=== PATIENT | female | born 1960 | race Two or more races ===

== ENCOUNTER 2018-11-16 04:54 | Day surgery (SDC) | payer OTHER ==
[2018-11-12 10:41] VITALS: BMI 31.7
[2018-11-16] MEDS ORDERED: ONDANSETRON 4 MG/2 ML VIAL IVPUSH PRN (11:14)
[2018-11-16] MEDS ORDERED: LACTATED RINGERS SOLUTION 1,000 ML IV SCH ×2 (11:15→12:45)
[2018-11-16] MEDS ORDERED: MIDAZOLAM HCL 2 MG/2 ML SINGLE DOSE VIAL ONE (11:46)
[2018-11-16] MEDS ORDERED: PROPOFOL 20 ML ONE ×2 (11:48)
[2018-11-16] MEDS ORDERED: SUCCINYLCHOLINE CHLORIDE 200 MG/10 ML SYRINGE ONE (11:49)
[2018-11-16] MEDS ORDERED: KETOROLAC TROMETHAMINE 30 MG/1 ML VIAL ONE (12:06)
[2018-11-16] MEDS ORDERED: DEXAMETHASONE SOD PHOSPHATE 4 MG/1 ML VIAL ONE (12:06)
--- NOTE | 2018-11-16 12:21 | HP ---
Past Medical History - Primary Care Physician PCP:: Cynthia Norton - Admission Chief Complaint: 58 yrs , menopause 2012, for D&C hysteroscopy due to Post menopausal bleeding for 1 week abou2-4 wks ago History of Present Illness: pt was referred to [address] [place] [address] for EM Bx from [facility] 10/23/18 em bx report proliferatve em, brek down , no malignancy c/o PMB for 1 wk mainly spotting h/o abn pap ASCUS 08/24/16 , hpv neg. Repeat pap 10/23/18 ascus, hpv neg colposcopy done 11/06/18 neg , satisfactory . ecc neg for dysplasia sonogram reported ut 5 cm, em 4mm, post wall echogenic focus 7.5x4mm focus inseprable from em , near fundus echogenic focus inseparable from ut , possible polyp or submucus fibroid . 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 Cardiovascular: Yes: HTN, Hyperlipdemia Pulmonary: No: Asthma Gastrointestinal: Yes: Gastritis, Other (h/o colon polyp diagnosed on colonoscopy) Hepatobiliary: No: Cirrhosis, Cholelithiasis, Cholecystitis, Choledocholithiasis , Hepatitis A, Hepatitis B, Hepatitis C, Other Renal/: No: Renal Failure, Renal Inusuff, BPH, Cancer, Hematuria, Hemodialysis , Neurogenic Bladder, Renal Calculi, UTI, Other Reproductive: Yes: Postmenopausal (pmb), Other (h/o ascus , HPV neg 2016 & 2018 colposcopy neg , ecc neg for dysplasia Mammogram 10/06/2018 --birad's 2) ...: 2 ...Para: 2 (2 , LD 1980 ) Infectious Disease: No: AIDS, C-Diff, Herpes Zoster, HIV, MRSA, STD's, Tuberculosis, VREF, Other Psych: No: Addictions, Anxiety, Bipolar, Depression, Panic, Psychosis, Schizophrenia, Other - Past Surgical History Past Surgical History: Yes: Colonoscopy (2015) Hx Myomectomy: No Hx Transabdominal Cerclage: No - Smoking History Smoking history: Never smoked Have you smoked in the past 12 months: No - Alcohol/Substance Use Hx Alcohol Use: No History of Substance Use: reports: None Home Medications - Allergies Allergies/Adverse Reactions: Allergies Allergy/AdvReac Type Severity Reaction Status Date / Time No Known Allergies Allergy Verified 11/16/18 10:04 - Home Medications Home Medications: Ambulatory Orders Acetaminophen [Tylenol Arthritis] 650 mg PO PRN 11/12/18 Hydralazine HCl 25 mg PO DAILY 11/12/18 Ibuprofen 800 mg PO PRN 11/12/18 Pantoprazole Sodium [Protonix -] 40 mg PO DAILY 11/12/18 Simvastatin 20 mg PO DAILY 11/12/18 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 No: Bleeding Cervix: Yes: Normal. No: Cerv Motion Tenderness Uterus: Yes: Normal, Freely Moveable, Firm, Retroverted Adnexa: Normal: Bilateral, Not Palpable: Bilateral Breast(s): Yes: WNL Musculoskeletal: Yes: WNL Extremities: Yes: WNL. No: Calf Tenderness Edema: No Integumentary: Yes: WNL Neurological: Yes: WNL ...Motor Strength: WNL Psychiatric: Yes: WNL, Alert, Oriented Problem List - Problem (1) Postmenopausal bleeding Code(s): N95.0 - POSTMENOPAUSAL BLEEDING (2) Endometrium, polyp Code(s): N84.0 - POLYP OF CORPUS UTERI Assessment/Plan 58 yrs , menopause since 2012, h/o PMB , suspecvted polyp posterior on sonogram plan Hysteroscopy, Pplypectomy, D&C
--- NOTE | 2018-11-16 12:44 | OP ---
Operative Note - Note: Operative Date: 11/16/18 Pre-Operative Diagnosis: PMB, & em p0lyp Operation: hysteroscopy, fractional D&C Findings: ut 5 cm , both tubal opening ostia note thin em liniing no plypm or submucous fibroid noted Post-Operative Diagnosis: Other (No polyp noted) Surgeon: Cynthia Norton Anesthesiologist/FAMILY REUNIFICATION SPECIALIST: Trudy Tavares MD Anesthesia: General Specimens Removed: ecc. emc Estimated Blood Loss (mls): 1 (scanty) Operative Report Dictated: Yes
[2018-11-16] MEDS ORDERED: IBUPROFEN 400 MG TABLET (FP) PO PRN (12:47)
--- NOTE | 2018-11-16 13:23 | OP ---
DATE OF OPERATION: 11/16/2018 PREOPERATIVE DIAGNOSIS: Postmenopausal bleeding, endometrial polyp. POSTOPERATIVE DIAGNOSIS: Postmenopausal bleeding. No endometrial polyp noted. SURGEON: Cynthia Norton MD ANESTHESIOLOGIST: Trudy Tavares MD SURGERY: Hysteroscopy, fractional dilation and curettage. FINDINGS: This is a 58-year-old 2, para 2-0-0-2 has a history of abnormal Pap as discussed in 2016 and October 2018. Colposcopy satisfactory, negative. ECC was negative for dysplasia. Endometrial biopsy in the clinic was proliferative endometrium, negative for the malignancy. US shows 7.5-mm echogenic focus posteriorly and also at the fundus questionable polyp or submucous fibroid. PROCEDURE: Patient is taken to operating room table. General anesthesia was given. Perineum and vulva were cleaned with Betadine. Vagina was cleaned with Betadine, and it was draped. The pelvic examination was done. There was incidental cystocele and rectocele was noted and cervix was 1st degree descent . Uterus was retroverted, normal size. Adnexa was not palpable. Weighted speculum was put. Anterior lip of the cervix and was held with a single-tooth tenaculum, and uterine cavity was sounded. The uterocervical length was 5 cm. Diagnostic hysteroscope was introduced. The endocervical canal was normal. Uterine cavity appeared to be normal. Thinned endometrium. Both ostia were noted. Fundus, anterior wall, and posterior wall inspected carefully, and no polyp or any submucous fibroid noted. The hysteroscope removed, and ECC was done. Cervix was dilated, and currettage was done. Cervix was dilated up to No. 8 dilator. Very minimal, scanty tissue was obtained and procedure completed. Bleeding minimal. Patient tolerated the procedure well and was transferred to recovery in stable condition. Santosh [id number] MTDDacry
[2018-11-16 13:48] VITALS: TEMP 97.5
[2018-11-16 15:27] VITALS: BP 116/68; PULSE 70
--- NOTE | 2018-11-19 15:12 | PATH ---
Surgical Pathology Report Patient Name: STEFANIE ANG [facility]. Rec. #: [id number] /Age/Gender: 1960 (Age: 58) / F Account: [id number] Location: AMBULATORY SURG Taken: 11/16/2018 Received: 11/16/2018 Reported: 11/19/2018 Physicians: Cynthia Norton M.D. Specimen(s) Received A: ENDOCERVICAL CURETTINGS B: ENDOMETRIAL CURETTINGS Clinical History Postmenopausal bleeding x3 weeks ago for 1 week Ultrasound-polyp past EM BX, proliferative endometrium ECC-negative for dysplasia colposcopy-negative Final Diagnosis A. ENDOCERVIX, CURETTAGE: BENIGN SQUAMOUS AND ENDOCERVICAL GLANDULAR EPITHELIUM. B. ENDOMETRIUM, CURETTAGE: DETACHED FRAGMENTS OF ATROPHIC ENDOMETRIUM, BENIGN SQUAMOUS AND SCANT ENDOCERVICAL GLANDULAR EPITHELIUM. Electronically Signed Agueda Henry M.D. Gross Description A. Received in formalin labeled "endocervical curettings" are scant fragments of pink-rodriges soft tissue having an aggregate of 0.3 x 0.2 x 0.1 cm. Specimen is filtered and entirely submitted in one cassette. B. Received in formalin labeled "endometrial curettings" are multiple irregular fragments of pink-rodriges and hemorrhagic, mucoid soft tissue having an aggregate of 0.4 x 0.3 x 0.1 cm. Entire specimen is submitted in one cassette. MLSZ/11/16/2018 sanml/11/16/2018
== END 2018-11-16 14:50 | disposition home or self-care (01) ==
LOC: JASUSAT 04:54 → JASU-SURG 04:54 → JASUSAT 14:50
PROVIDERS: ATTEND Obstetrics & Gynecology
PROC: 0UDB7ZX Extraction of Endometrium, Via Natural or Artificial Opening, Diagnostic (ICD-10-PCS; principal; 2018-11-16 11:30)
PROC: 0UJD8ZZ Inspection of Uterus and Cervix, Via Natural or Artificial Opening Endoscopic (ICD-10-PCS; 2018-11-16 11:30)
DX: N95.0 Postmenopausal bleeding (principal)
CPT/HCPCS: 86850; 86900; 86901; 88305-TC; 94760

== ENCOUNTER 2019-01-27 16:51 | Emergency (ER) | payer OTHER ==
[2019-01-27 16:57] VITALS: BP 168/79; PULSE 96; TEMP 97.5; BMI 32.2
--- NOTE | 2019-01-27 17:40 | PDOC ---
History of Present Illness - General Chief Complaint: Pain Stated Complaint: FALL/HEAD/PAIN Time Seen by Provider: 01/27/19 17:23 History Source: Patient Exam Limitations: No Limitations - History of Present Illness Initial Comments: 01/27/19 17:56 HISTORY OF PRESENT ILLNESS: 58-year-old woman with past medical history of hyperlipidemia and hypertension who presents to the emergency department for evaluation of frontal headache and left knee pain status post fall down an escalator. Patient reports she was standing on an escalator when she lost her balance falling forward traveling down multiple stairs. She denies any loss of consciousness or loss of continence. Patient was assisted to her feet and has been ambulatory since the initial injury. She denies any blurry vision, headache, nausea or vomiting. Patient denies any numbness or tingling to extremities, saddle anesthesia, loss of continence of bladder or bowel. No recent travel or sick contacts. PAST MEDICAL HISTORY: See HPI SURGICAL HISTORY: Denies ALLERGIES: No known drug allergies REVIEW OF SYSTEMS General/Constitutional: Denies fever or chills. Denies weakness, weight change. HEENT: See HPI Cardiovascular: Denies chest pain or shortness of breath. Respiratory: Denies cough, wheezing, or hemoptysis. Gastrointestinal: Denies nausea, vomiting, diarrhea or constipation. Denies rectal bleeding. Genitourinary: Denies dysuria, frequency, or change in urination. Musculoskeletal: See HPI Skin and breasts: Denies rash or easy bruising. Neurologic: Denies headache, vertigo, loss of consciousness, or loss of sensation. Psychiatric: Denies depression or anxiety. Endocrine: Denies increased thirst. Denies abnormal weight change. Hematologic/Lymphatic: Denies anemia, easy bleeding, or history of blood clots. Allergic/Immunologic: Denies hives or skin allergy. Denies latex allergy. PHYSICAL EXAM General Appearance: Well-appearing, appropriately dressed. No apparent distress , no intoxication. HEENT: EOMI, PERRLA, normal ENT inspection, normal voice, TMs normal, pharynx normal. No conjunctival pallor. No photophobia, scleral icterus. No hemotympanum is present. No evidence of septal hematoma. Hematoma present to the right forehead. Neck: Supple. Trachea midline. No tenderness, rigidity, carotid bruit, stridor , lymphadenopathy, or thyromegaly. No bony tenderness upon palpation of the cervical spine. No crepitus, deformity or step-offs are noted. Respiratory/Chest: Lungs CTAB. No shortness of breath, chest tenderness, respiratory distress, accessory muscle use. No crackles, rales, rhonchi, stridor , wheezing, dullness Cardiovascular: RRR. S1, S2. No JVD, murmur, bradycardia, tachycardia. Vascular Pulses: Dorsalis-Pedis (R): 2+, Dorsalis-Pedis (L): 2+ Gastrointestinal/Abdominal: Normal bowel sounds. Abdomen soft, non-distended. No tenderness or rebound tenderness. No organomegaly, pulsatile mass, guarding, hernia, hepatomegaly, splenomegaly. Lymphatic: No adenopathy, tenderness. Musculoskeletal/Extremities: Normal inspection. FROM of all extremities, normal capillary refill. Pelvis Stable. No CVA tenderness. No tenderness to extremities, pedal edema, swelling, erythema or deformity. Tenderness to palpation of the right patella. No crepitus or deformity is noted. Patella is mobile. Patient able to actively flex and extend knee beyond 90 degrees without difficulty. No difference in range of motion when compared to unaffected side. Normal [id number] testing. Gait is steady. Integumentary: Appropriate color, dry, warm. 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 Fully oriented, alert. Appropriate mood/affect. Motor strength 5/5. No appreciable EOM palsy, facial droop or sensory deficit. 01/27/19 17:57 Past History - Past Medical History Allergies/Adverse Reactions: Allergies Allergy/AdvReac Type Severity Reaction Status Date / Time No Known Allergies Allergy Verified 01/27/19 16:56 Home Medications: Ambulatory Orders Acetaminophen [Tylenol Arthritis] 650 mg PO PRN 11/12/18 Hydralazine HCl 25 mg PO DAILY 11/12/18 Ibuprofen 800 mg PO PRN 11/12/18 Pantoprazole Sodium [Protonix -] 40 mg PO DAILY 11/12/18 Simvastatin 20 mg PO DAILY 11/12/18 Ibuprofen [Motrin -] 400 mg PO Q6H PRN tablet 11/16/18 Anemia: No Asthma: No Cancer: No Cardiac Disorders: No CVA: No COPD: No CHF: No Dementia: No Diabetes: No GI Disorders: Yes (GASTRITIS) Disorders: No HTN: Yes Hypercholesterolemia: Yes Liver Disease: No Seizures: No Thyroid Disease: No - Psycho Social/Smoking Cessation Hx Smoking History: Never smoked Have you smoked in the past 12 months: No Hx Alcohol Use: No Drug/Substance Use Hx: No Substance Use Type: None *Physical Exam - Vital Signs Last Vital Signs Temp Pulse Resp BP Pulse Ox 97.5 F L 96 H 18 168/79 99 01/27/19 16:53 01/27/19 16:53 01/27/19 16:53 01/27/19 16:53 01/27/19 16:53 ED Treatment Course - RADIOLOGY Radiology Studies Ordered: Category Date Time Status CERVICAL SPINE CT W/O CONTR [CT] Stat CT Scan 01/27/19 17:[address] WITHOUT CONTRAST [CT] Stat CT Scan 01/27/19 17:38 Ordered KNEE 3 POS-RIGHT [RAD] Stat Radiology 01/27/19 17:38 Ordered Medical Decision Making - Medical Decision Making 01/27/19 17:59 A/P: 58-year-old woman with forehead pain, neck pain and lower back pain status post fall down escalator Hematoma present to the right forehead No evidence of septal hematoma noted No hemotympanum present No bony tenderness, crepitus or step-off present to cervical, thoracic and lumbar spine Moves all extremities with strength 5/5 Tenderness to right patella without deformity, crepitus noted. Patella is mobile Able to flex and extend the right knee beyond 90 degrees and equal to unaffected side. While patient does not endorse loss of consciousness or vomiting given mechanism of injury I feel it is appropriate to perform a CAT scan of the head and cervical spine to rule out any intracranial or cervical spinal pathology. X-ray of the right knee including sunrise view to rule out fracture Patient is taken Tylenol prior to arrival. Reassess 01/27/19 19:13 Right knee x-ray as read by me: Arthritic changes present. No acute pathology. CT of the head and neck are pending Discharge - Discharge Information Problems reviewed: Yes Clinical Impression/Diagnosis: Fall (on) (from) other stairs and steps, initial encounter, Neck pain Hematoma of frontal scalp Qualifiers: Encounter type: initial encounter Qualified Code(s): S00.03XA - Contusion of scalp, initial encounter - Follow up/Referral Referrals: Holloway,Sal A, DO [Staff Physician] - - Patient Discharge Instructions Additional Instructions: You be given a referral for an orthopedist. Call to schedule appointment for reevaluation of your knee pain. Your emergency department visit is incomplete until you follow-up with your regular doctor. Take Tylenol 2-500 mg tablets every 6 hours as needed for pain. Take Motrin 3-200 mg tablets every 6 hours as needed for pain. These medications do not require a prescription as they are [id number]. Apply ice to your forehead and knee to help relieve pain. Do not leave ice on for more than 20 minutes at a time. Return to the emergency department for blurry vision, dizziness, vomiting or any new or worsening symptoms. Thank you very much for choosing us to provide your emergent health care needs. - Post Discharge Activity
== END 2019-01-27 20:53 | disposition home or self-care (01) ==
LOC: JERFT 16:51
DX: S00.03XA Contusion of scalp, initial encounter (principal); W10.0XXA Fall (on)(from) escalator, initial encounter; Y93.89 Activity, other specified; Y92.89 Other specified places as the place of occurrence of the external cause
CPT/HCPCS: 70450-TC; 72125-TC; 73562-TC-RT-FY; 99283-25

== ENCOUNTER 2021-11-07 00:05 | Emergency (ER) | payer OTHER ==
[2021-11-07 00:18] VITALS: BP 141/83; PULSE 93; RESP 22; TEMP 98.1; BMI 30.9
[2021-11-07] MEDS ORDERED: ACETAMINOPHEN 325 MG TABLET (FP) PO ONE (00:40)
[2021-11-07] MEDS ORDERED: ACETAMINOPHEN 325 MG TABLET (FP) ONE (00:45)
[2021-11-07] MEDS ORDERED: METHOCARBAMOL 500 MG TABLET PO ONE (02:54)
[2021-11-07] MEDS ORDERED: METHOCARBAMOL 500 MG TABLET ONE (02:59)
== END 2021-11-07 03:18 | disposition home or self-care (01) ==
LOC: JER 00:05
DX: S09.90XA Unspecified injury of head, initial encounter (principal); W18.2XXA Fall in (into) shower or empty bathtub, initial encounter; Y92.9 Unspecified place or not applicable
CPT/HCPCS: 70450-TC; 72125-TC; 93005; 93010; 99284-25

== ENCOUNTER 2023-03-14 08:00 | Inpatient (IN) | payer OTHER ==
[2023-03-09 12:09] VITALS: BMI 30.9
[2023-03-16] MEDS ORDERED: ceFAZolin SODIUM 1 GM VIAL ONE (09:03)
[2023-03-16] MEDS ORDERED: DEXAMETHASONE SOD PHOSPHATE 4 MG/1 ML VIAL ONE (09:03)
[2023-03-16] MEDS ORDERED: LIDOCAINE HCL/PF 2% SDV 5ML VIAL ONE (09:03)
[2023-03-16] MEDS ORDERED: TRANEXAMIC ACID 1000 MG/10 ML VIAL ONE (09:03)
[2023-03-16] MEDS ORDERED: KETOROLAC TROMETHAMINE 30 MG/1 ML VIAL ONE (09:03)
[2023-03-16] MEDS ORDERED: SUGAMMADEX SODIUM 200 MG/2 ML VIAL ONE ×2 (09:03→11:49)
[2023-03-16] MEDS ORDERED: ONDANSETRON 4 MG/2 ML VIAL ONE (09:03)
[2023-03-16] MEDS ORDERED: PROPOFOL 40 ML ONE (09:04)
[2023-03-16] MEDS ORDERED: ROCURONIUM BROMIDE 50 MG/5 ML SYRINGE ONE ×2 (09:07→11:15)
[2023-03-16] MEDS ORDERED: MIDAZOLAM HCL 2 MG/2 ML SINGLE DOSE VIAL ONE (09:15)
[2023-03-16] MEDS ORDERED: HYDROmorphone HCl 2 MG/ML VIAL ONE (09:16)
[2023-03-16] MEDS ORDERED: SODIUM CHLORIDE 0.9% P/F 10 ML VIAL IJ ONE (09:16)
[2023-03-16] MEDS ORDERED: GENTAMICIN SO4 80 MG/2 ML VIAL ONE (09:22)
[2023-03-16] MEDS ORDERED: VANCOMYCIN 1,000 MG VIAL (RESTRICTED TO ID ONLY) ONE (09:22)
[2023-03-16] MEDS ORDERED: THROMBIN (BOVINE) 5,000 UNIT VIAL TP ONE (09:22)
[2023-03-16] MEDS ORDERED: LIDOCAINE 1%/EPI 1:100000 (20 ML MULTI DOSE VIAL) ONE ×2 (09:23→09:32)
[2023-03-16] MEDS ORDERED: BUPIVACAINE HCL/PF 0.5% (5MG/ML) 10 ML VIAL ONE (09:23)
[2023-03-16] MEDS ORDERED: VANCOMYCIN 1,000 MG VIAL (RESTRICTED TO ID ONLY) IVPB ONE (10:15)
[2023-03-16] MEDS ORDERED: ceFAZolin 2 GRAM PREMIX BAG IVPB ONE (10:20)
[2023-03-16] MEDS ORDERED: KETAMINE HCL 200 MG/20 ML VIAL ONE (10:57)
[2023-03-16] MEDS ORDERED: ACETAMINOPHEN INJECTION 100 ML IVPB ONE (11:09)
[2023-03-16] MEDS ORDERED: LIDOCAINE 1%/EPI 1:100000 (20 ML MULTI DOSE VIAL) IJ ONE (11:45)
[2023-03-16] MEDS ORDERED: THROMBIN (BOVINE) 20,000 UNIT VIAL TP ONE (11:46)
[2023-03-16] MEDS ORDERED: GENTAMICIN SO4 80 MG/2 ML VIAL IVPB ONE (11:47)
[2023-03-16] MEDS ORDERED: morphine SULFATE 4 MG/ML VIAL IVPUSH PRN (12:23)
[2023-03-16] MEDS ORDERED: oxyCODONE HCL 5 MG TABLET PO PRN ×2 (12:23)
[2023-03-16] MEDS ORDERED: diphenhydrAMINE HCL 25 MG CAPSULE (FP) PO PRN (12:23)
[2023-03-16] MEDS ORDERED: ONDANSETRON 4 MG/2 ML VIAL IVPUSH PRN ×2 (12:23→12:29)
[2023-03-16] MEDS ORDERED: LABETALOL HCL 5 MG/1 ML (100MG/20 ML VIAL) IVPUSH PRN (12:29)
[2023-03-16] MEDS ORDERED: LACTATED RINGERS SOLUTION 1,000 ML IV SCH (12:30)
[2023-03-16] MEDS: LACTATED RINGERS SOLUTION 1,000 ML/1,000 ML INFUS.BAG IV SCH (14:50)
[2023-03-16] MEDS: DOCUSATE SODIUM 100 MG CAPSULE (FP) PO SCH ×2 (15:49→21:34)
[2023-03-16] MEDS: CEFAZOLIN 1 GM in DEXTROSE 5%-WATER - 50 ML IVPB SCH (18:24)
[2023-03-16] MEDS: ACETAMINOPHEN 1000 MG/100 ML BAG IVPB SCH (20:37)
[2023-03-16] MEDS: HEPARIN NA (PORCINE) 5,000 UNITS/ML 1ML VIAL SQ SCH (21:34)
[2023-03-17] MEDS: CEFAZOLIN 1 GM in DEXTROSE 5%-WATER - 50 ML IVPB SCH ×3 (01:19→17:40)
[2023-03-17] MEDS: ACETAMINOPHEN 1000 MG/100 ML BAG IVPB SCH ×3 (05:05→21:44)
[2023-03-17] MEDS: DOCUSATE SODIUM 100 MG CAPSULE (FP) PO SCH ×3 (06:34→21:45)
[2023-03-17] MEDS: PANTOPRAZOLE 40 MG TABLET PO SCH (09:40)
[2023-03-17] MEDS: FOLIC ACID 1 MG TABLET (FP) PO SCH (09:40)
[2023-03-17] MEDS: HEPARIN NA (PORCINE) 5,000 UNITS/ML 1ML VIAL SQ SCH ×2 (09:40→21:46)
[2023-03-17] MEDS: HYDROCHLOROTHIAZIDE 25 MG TABLET (FP) PO SCH (09:40)
[2023-03-17] MEDS: FERROUS SO4 325 MG TABLET (FP) PO SCH (09:40)
[2023-03-17] MEDS ORDERED: PATIENT'S OWN MEDICATION (NON-FORMULARY) (Linaclotide 145 MCG Capsule) PO SCH (10:00)
[2023-03-17] MEDS ORDERED: hydrALAZINE HCL 25 MG TABLET (FP) PO SCH (10:00)
[2023-03-17] MEDS ORDERED: IBUPROFEN 600 MG TABLET (FP) PO PRN ×2 (10:04→15:31)
[2023-03-17 10:12] LABS: HEMATOCRIT 35.6 % (32.4-45.2); MCH 29.9 pg (25.7-33.7); MCHC 33.7 g/dl (32.0-36.0); MEAN CELL VOLUME 88.9 fl (80-96); MEAN PLT VOLUME 9.5 fl (7.5-11.1); PLATELET COUNT 255 10^3/uL (134-434); RBC 4.01 M/mm3 (3.60-5.2); WHITE BLOOD COUNT 9.9 K/mm3 (4.0-10.0)
[2023-03-17] MEDS ORDERED: IBUPROFEN 400 MG TABLET (FP) PO PRN ×2 (10:35→15:31)
[2023-03-17 10:40] LABS: POTASSIUM 3.1 mmol/L (3.5-5.1)
[2023-03-17 11:15] LABS: BLOOD UREA NITROGEN 7.9 mg/dL (7-18)
[2023-03-17 11:17] LABS: CALCIUM 8.8 mg/dL (8.5-10.1)
[2023-03-17 11:18] LABS: CREATININE 0.6 mg/dL (0.55-1.3)
[2023-03-17] MEDS ORDERED: POTASSIUM CHLORIDE TABS 20 MEQ TABLET.ER (FP) PO ONE (12:30)
[2023-03-17] MEDS: LACTATED RINGERS SOLUTION 1,000 ML/1,000 ML INFUS.BAG IV SCH (12:54)
[2023-03-17] MEDS ORDERED: POTASSIUM CHLORIDE ORAL LIQUID 20 MEQ/15 ML PO ONE (13:13)
[2023-03-17] MEDS ORDERED: oxyCODONE HCL 5 MG TABLET PO PRN (15:32)
[2023-03-17] MEDS ORDERED: ATORVASTATIN CA 10 MG TABLET (FP) PO SCH (22:00)
[2023-03-17 23:54] VITALS: RESP 18
[2023-03-18] MEDS: CEFAZOLIN 1 GM in DEXTROSE 5%-WATER - 50 ML IVPB SCH ×2 (01:16→09:24)
[2023-03-18] MEDS: DOCUSATE SODIUM 100 MG CAPSULE (FP) PO SCH ×2 (05:15→13:18)
[2023-03-18] MEDS ORDERED: ceFAZolin SODIUM 1 GM VIAL ONE (08:42)
[2023-03-18] MEDS: FERROUS SO4 325 MG TABLET (FP) PO SCH (09:24)
[2023-03-18] MEDS: HYDROCHLOROTHIAZIDE 25 MG TABLET (FP) PO SCH (09:24)
[2023-03-18] MEDS: HEPARIN NA (PORCINE) 5,000 UNITS/ML 1ML VIAL SQ SCH (09:24)
[2023-03-18] MEDS: PANTOPRAZOLE 40 MG TABLET PO SCH (09:24)
[2023-03-18] MEDS: FOLIC ACID 1 MG TABLET (FP) PO SCH (09:24)
[2023-03-18] MEDS ORDERED: ACETAMINOPHEN 325 MG TABLET (FP) PO PRN (09:29)
[2023-03-18 10:04] LABS: POTASSIUM 3.3 mmol/L (3.5-5.1)
[2023-03-18 10:17] LABS: CALCIUM 8.4 mg/dL (8.5-10.1)
[2023-03-18 10:18] LABS: BLOOD UREA NITROGEN 9.5 mg/dL (7-18)
[2023-03-18 10:20] LABS: CREATININE 0.6 mg/dL (0.55-1.3)
[2023-03-18] MEDS ORDERED: POTASSIUM CHLORIDE TABS 20 MEQ TABLET.ER (FP) PO SCH (11:40)
[2023-03-18 12:33] VITALS: BP 119/72; PULSE 80; TEMP 98.8
[2023-03-18] MEDS ORDERED: POTASSIUM CHLORIDE ORAL LIQUID 20 MEQ/15 ML PO ONE (13:00)
[2023-03-18 15:18] LABS: MAGNESIUM 2.1 mg/dL (1.8-2.4)
== END 2023-03-18 14:00 | disposition home or self-care (01) | DRG 321 ==
LOC: J2C 03-16 03:57 → J8W 03-16 15:26
PROVIDERS: ADMIT Internal Medicine; ATTEND Internal Medicine
PROC: 00NW0ZZ Release Cervical Spinal Cord, Open Approach (ICD-10-PCS; 2023-03-16)
PROC: 0RB30ZZ Excision of Cervical Vertebral Disc, Open Approach (ICD-10-PCS; 2023-03-16)
PROC: 4A11X4G Monitoring of Peripheral Nervous Electrical Activity, Intraoperative, External Approach (ICD-10-PCS; 2023-03-16)
PROC: 0RG20A0 Fusion of 2 or more Cervical Vertebral Joints with Interbody Fusion Device, Anterior Approach, Anterior Column, Open Approach (ICD-10-PCS; principal; 2023-03-16 10:00)
DX: M50.022 Cervical disc disorder at C5-C6 level with myelopathy (principal); M50.021 Cervical disc disorder at C4-C5 level with myelopathy; G95.20 Unspecified cord compression; M47.12 Other spondylosis with myelopathy, cervical region; M40.292 Other kyphosis, cervical region; I10 Essential (primary) hypertension; E78.5 Hyperlipidemia, unspecified
CPT/HCPCS: 36415; 72125-TC; 76000-TC-FY; 80048; 83735; 85027; 86850; 86900; 86901; 94760; 97116-GP; 97161-GP; C1713; J0131; J1644